=== PATIENT | female | born 1935 | race Caucasian/White ===

== ENCOUNTER 2018-12-22 11:17 | Inpatient (IN) | payer MEDICARE ==
[2018-12-22] MEDS ORDERED: MORPHINE SULFATE 4 MG/ML SYRINGE IVP STA (11:38)
--- NOTE | 2018-12-22 11:43 | ED ---
General Adult HPI - General Chief complaint: Fall Stated complaint: Fell rt hip pain Time Seen by Provider: 12/22/18 11:30 Source: family, RN notes reviewed, old records reviewed Mode of arrival: wheelchair Limitations: altered mental status - History of Present Illness Initial comments: Patient is an 83-year-old female who presents emergency department today for evaluation after falling on her right hip. Patient reports that she stood up from a recliner chair, tripped fell and landed on her right hip. She's had history of left hip fracture 2 years ago. She is currently staying with her son. She is originally from [place], and is with her son while her daughters on vacation. Patient reports that she's not on any blood thinners besides a baby aspirin. Patient reports pain with extension of the right leg and hip. She denies any head or neck injury. She denies any associated chest pain, dizziness or shortness of breath prior to tripping and falling. Patient does have history of dementia. - Related Data Allergies Allergy/AdvReac Type Severity Reaction Status Date / Time Penicillins Allergy Unknown Verified 12/22/18 11:27 Sulfa (Sulfonamide Allergy Unknown Verified 12/22/18 11:27 Antibiotics) warfarin [From Coumadin] Allergy Unknown Verified 12/22/18 11:27 Review of Systems ROS Statement: Those systems with pertinent positive or pertinent negative responses have been documented in the HPI. ROS Other: All systems not noted in ROS Statement are negative. Past Medical History Past Medical History: Atrial Fibrillation, COPD, CVA/TIA, Dementia, GERD/Reflux, Hyperlipidemia, Hypertension, Osteoarthritis (OA) Additional Past Medical History / Comment(s): ulcerative colitis, mitral valve prolapse, fibromyalgia, renal cyst, neuropathy, osteoporosis History of Any Multi-Drug Resistant Organisms: None Reported Additional Past Surgical History / Comment(s): left hip Past Psychological History: No Psychological Hx Reported Smoking Status: Former smoker Past Alcohol Use History: None Reported Past Drug Use History: None Reported General Exam - General Exam Comments Initial Comments: Pleasantly 83-year-old female with dementia. Patient appears in moderate discomfort at this time. Limitations: altered mental status General appearance: alert, in no apparent distress Head exam: Present: atraumatic, normocephalic, normal inspection Eye exam: Present: normal appearance, PERRL, EOMI. Absent: scleral icterus, conjunctival injection, periorbital swelling ENT exam: Present: normal exam, mucous membranes moist Neck exam: Present: normal inspection. Absent: tenderness, meningismus, lymphadenopathy Respiratory exam: Present: normal lung sounds bilaterally. Absent: respiratory distress, wheezes, rales, rhonchi, stridor Cardiovascular Exam: Present: regular rate, normal rhythm, normal heart sounds. Absent: systolic murmur, diastolic murmur, rubs, gallop, clicks GI/Abdominal exam: Present: soft, normal bowel sounds. Absent: distended, tenderness, guarding, rebound, rigid Extremities exam: Present: normal inspection, full ROM, normal capillary refill. Absent: tenderness, pedal edema, joint swelling, calf tenderness Right Hip exam: Present: tenderness (over greater trochanter). Absent: normal inspection (Patient holding leg in flexed position. ), full ROM Upper Leg exam: Present: normal inspection, full ROM Knee exam: Present: normal inspection, full ROM Lower Leg exam: Present: normal inspection, full ROM Neurovascular tendon exam: Present: no vascular compromise Back exam: Present: normal inspection Neurological exam: Present: alert, oriented X3, CN II-XII intact Course Vital Signs 12/22/18 11:22 Temperature 98.1 F Pulse Rate 94 Respiratory 18 Rate Blood Pressure 155/82 O2 Sat by Pulse 97 Oximetry - Reevaluation(s) Reevaluation #1: 12/22/18 12:06 had a localized ALLERGIC reaction from receiving IV morphine on the right arm. Some minor hives and welling noted to the right upper arm. Patient will be receiving Benadryl. Medical Decision Making - Medical Decision Making Patient is an 83-year-old female with a history of underlying dementia. She is here visiting her son for the week. Patient's son is a respiratory therapist hospital. She presents after tripping fall from a recliner. She landed onto her right hip. Patient sustained a right subcapital hip fracture. Patient's st arted on a Patricia catheter in, given pain medication. She did have a slight ALLERGIC reaction with hives on the arm after receiving morphine. Patient case was tyrel Brown who will accept the admission for Dr. Cook. Patient will be remaining nothing by mouth at midnight. - Lab Data Result diagrams: 12/22/18 11:56 12/22/18 11:56 Lab Results 12/22/18 12/22/18 12/22/18 Range/Units 11:56 11:56 11:56 WBC 7.9 (3.8-10.6) k/uL RBC 4.04 (3.80-5.40) m/uL Hgb 11.6 (11.4-16.0) gm/dL Hct 36.1 (34.0-46.0) % MCV 89.3 (80.0-100.0) fL MCH 28.7 (25.0-35.0) pg MCHC 32.1 (31.0-37.0) g/dL RDW 13.6 (11.5-15.5) % Plt Count 464 H (150-450) k/uL Neutrophils % 75 % Lymphocytes % 14 % Monocytes % 7 % Eosinophils % 1 % Basophils % 0 % Neutrophils # 5.9 (1.3-7.7) k/uL Lymphocytes # 1.1 (1.0-4.8) k/uL Monocytes # 0.5 (0-1.0) k/uL Eosinophils # 0.1 (0-0.7) k/uL Basophils # 0.0 (0-0.2) k/uL PT 9.7 (9.0-12.0) sec INR 0.9 (<1.2) APTT 20.9 L (22.0-30.0) sec Sodium 139 (137-145) mmol/L Potassium 4.5 (3.5-5.1) mmol/L Chloride 102 (98-107) mmol/L Carbon Dioxide 29 (22-30) mmol/L Anion Gap 8 mmol/L BUN 26 H (7-17) mg/dL Creatinine 0.82 (0.52-1.04) mg/dL Est GFR (CKD-EPI)AfAm 77 (>60 ml/min/1.73 sqM) Est GFR (CKD-EPI)NonAf 66 (>60 ml/min/1.73 sqM) Glucose 115 H (74-99) mg/dL Calcium 9.8 (8.4-10.2) mg/dL Total Bilirubin 0.3 (0.2-1.3) mg/dL AST 24 (14-36) U/L ALT 22 (9-52) U/L Alkaline Phosphatase 72 (38-126) U/L Total Protein 6.5 (6.3-8.2) g/dL Albumin 3.7 (3.5-5.0) g/dL 12/22/18 12:06 Patient - Radiology Data Radiology results: report reviewed Subtle subcapital not commuted acute impaction fracture with diffuse osseous demineralization. Chest x-ray shows COPD and chronic appearing changes. No definite acute process. Disposition Clinical Impression: Closed right hip fracture, Dementia, HTN (hypertension) Disposition: ADMITTED IP TO THIS [facility] Condition: Stable Is patient prescribed a controlled substance at d/c from ED?: No Referrals: None,Stated [Primary Care Provider] - 1-2 days Time of Disposition: 13:16
[2018-12-22] MEDS ORDERED: diphenhydrAMINE 50 MG/ML 1 ML VIAL IVP STA (12:03)
[2018-12-22 12:16] LABS: Basophils % (A) 0 %; Eosinophils # (A) 0.1 k/uL (0-0.7); Eosinophils % (A) 1 %; HCT 36.1 % (34.0-46.0); HGB 11.6 gm/dL (11.4-16.0); Lymphocytes # (A) 1.1 k/uL (1.0-4.8); Lymphocytes % (A) 14 %; MCH 28.7 pg (25.0-35.0); MCHC 32.1 g/dL (31.0-37.0); MCV 89.3 fL (80.0-100.0); Mean Platelet Volume 6.8; Monocytes # (A) 0.5 k/uL (0-1.0); Monocytes % (A) 7 %; Neutrophils # (A) 5.9 k/uL (1.3-7.7); Neutrophils % (A) 75 %; Platelet Count 464 k/uL (150-450); RBC 4.04 m/uL (3.80-5.40); RDW 13.6 % (11.5-15.5); WBC 7.9 k/uL (3.8-10.6)
[2018-12-22 12:20] LABS: Albumin 3.7 g/dL (3.5-5.0); Calcium 9.8 mg/dL (8.4-10.2); Potassium 4.5 mmol/L (3.5-5.1); Total Bilirubin 0.3 mg/dL (0.2-1.3); Total Protein 6.5 g/dL (6.3-8.2)
[2018-12-22 12:27] LABS: INR 0.9 (<1.2); Prothrombin Time 9.7 sec (9.0-12.0)
[2018-12-22 12:40] LABS: Partial Thromboplastin Time 20.9 sec (22.0-30.0)
--- NOTE | 2018-12-22 12:58 | XR ---
EXAMINATION TYPE: XR chest 1V DATE OF EXAM: 12/22/2018 COMPARISON: NONE HISTORY: 83-year-old female with pain after fall TECHNIQUE: Single frontal view of the chest is obtained. FINDINGS: Heart upper limits of normal in size. Atherosclerotic arch calcifications. Hyperinflation with diffus e interstitial prominence which has a chronic appearance. No consolidation, pneumothorax, or pleural effusion. IMPRESSION: COPD and chronic appearing changes. No definite acute process.
--- NOTE | 2018-12-22 13:01 | XR ---
EXAMINATION TYPE: XR Hip RT and AP Pelvis, XR femur RT DATE OF EXAM: 12/22/2018 COMPARISON: NONE HISTORY: Fall with subsequent right hip pain. The patient is unable to straighten her right hip. TECHNIQUE: A single AP view of the pelvis is obtained. Two views of the right hip are obtained. FINDINGS: Sclerosis is seen in the subcapital right hip with cortical discontinuity laterally. There is also abnormal angulation of the femur on the basis of a subtle subcapital right femoral neck fract ure. Generalized osseous demineralization is seen. Surgical pinning of the left prior femoral neck fr acture seen. Remainder the pelvis appears grossly intact. Sacroiliac joint spaces are symmetric. Mode rate degree fecal stasis is incidentally noted. Remainder the right femur is intact. Knee joint is morales boptimally visualized. IMPRESSION: Subtle subcapital noncomminuted acute impaction fracture with diffuse osseous demineraliz ation.
[2018-12-22] MEDS ORDERED: IBUPROFEN 400 MG TAB PO PRN (13:17)
[2018-12-22] MEDS ORDERED: HYDROmorphone 1 MG/ML 1 ML SYRINGE IVP PRN (13:17)
[2018-12-22] MEDS ORDERED: ONDANSETRON 4 MG/2 ML VIAL IVP PRN (13:17)
[2018-12-22] MEDS ORDERED: NALOXONE 0.4 MG/ML 1 ML VIAL IV PRN (13:17)
[2018-12-22] MEDS ORDERED: ACETAMINOPHEN TAB 325 MG TAB PO PRN (13:17)
[2018-12-22] MEDS: HYDROmorphone 0.5 MG/0.5 ML SYRINGE IVP PRN ×2 (14:29→20:18)
[2018-12-22] MEDS ORDERED: MELATONIN 5 MG TABLET PO PRN (16:49)
[2018-12-22] MEDS ORDERED: CALCIUM CARBONATE 500 MG CHEWABLE PO PRN (16:49)
[2018-12-22] MEDS ORDERED: DOCUSATE 100 MG CAP PO PRN (16:49)
[2018-12-22] MEDS ORDERED: ALBUTEROL NEBULIZED 2.5 MG/3 ML INHALATION PRN (16:49)
--- NOTE | 2018-12-22 16:52 | P.CONS ---
History of Present Illness - Reason for Consult Consult date: 12/22/18 A fib Requesting physician: Delbert Cook - Chief Complaint right hip pain - History of Present Illness Patient is an 83-year-old female with a past medical history of dementia, multiple TIAs, hypertension, dyslipidemia, COPD, A. fib not on chronic anticoagulation secondary to history of bleeding, ulcerative colitis, and multiple other comorbid conditions as listed below who presented to the ER after sustaining a fall at home. In the ER she underwent an extensive evaluation. Her initial vital signs were within normal limits. Initial laboratory analysis showed slightly elevated platelet count 464. Initial x-rays revealed a subtle slept Little noncommunicative acute impaction fracture with diffuse osseous demineralization. In the ER she was given a dose of morphine and had an ALLERGIC reaction consisting of hives around the injection site. She was a dmitted to orthopedics for operative management. Patient seen and examined at bedside with son present. Patient is alert and oriented to self only and son provides all of history. Apparently the patient is here visiting from [place]. She has dementia and her daughter is on vacation who is typically her primary drop clipper. She got up from a recliner today and fell. She landed on her right hip and was then complaining of pain and inability to bear weight. She did not pass out or have any seizure like activity. She has been declining over the last year. She is typically alert to self and her age, but not the year or where she is at. She has had not had any recent illnesses such as cough, cold, fever, flu, diarrhea, constipation, or dysuria. She does have chronic urinary incontinence and wears a brief all the time and uses a pad at night. She typically walks with a walker. She has had poor balance over the last year. She is typically able to walk approximately half a block. She is not complaining of any chest pain or shortness of breath. She has no cardiac history other than atrial fibrillation. She's never had a stent to the heart. She does have a day program that she attends. Her COPD is well controlled she's not had any recent issues and she is maintained on Symbicort and as needed albuterol. Review of Systems Unable to obtain secondary to dementia, as provided by son in HPI. Past Medical History Past Medical History: Atrial Fibrillation, Asthma, COPD, CVA/TIA, Dementia, Eye Disorder, Fibromyalgia, GERD/Reflux, Hyperlipidemia, Hypertension, Osteoarthritis (OA) Additional Past Medical History / Comment(s): Paroxysmal Afib, MVP, TIAs, vascular dementia, peripheral neuropathy, osteoporosis, falls, L hip fracture with surgery, spinal compression fracture 11/2017, carpal tunnel syndrome, generalized body/back pain, corneal dystrophy bilaterally, renal cysts. History of Any Multi-Drug Resistant Organisms: None Reported Past Surgical History: Orthopedic Surgery Additional Past Surgical History / Comment(s): left hip surgery d/t fracture, Past Anesthesia/Blood Transfusion Reactions: No Reported Reaction Smoking Status: Former smoker Additional History: Lives with her daughter. Uses a walker at baseline. Is incontinent and wears a brief and a pad at night. - Past Family History Father Family Medical History: Cancer, Dementia Additional Family Medical History / Comment(s): Father had colon cancer with surgery Mother Family Medical History: CVA/TIA Additional Family Medical History / Comment(s): TIAs. Medications and Allergies Home Medications Medication Instructions Recorded Confirmed Type Albuterol Inhaler [Ventolin Hfa 1 - 2 puff INHALATION RT-Q6H PRN 12/22/18 12/22/18 History Inhaler] Ascorbic Acid [Vitamin C] 500 mg PO DAILY 12/22/18 12/22/18 History Aspirin EC [Ecotrin Low Dose] 81 mg PO HS 12/22/18 12/22/18 History Balsalazide Disodium [Colazal] 750 mg PO HS 12/22/18 12/22/18 History Budesonide/Formoterol Fumarate 2 puff INHALATION RT-BID 12/22/18 12/22/18 History [Symbicort 160-4.5 Mcg Inhaler] Fish Oil(Unknown) 1 cap PO HS 12/22/18 12/22/18 History HYDROcodone/APAP 5-325MG [[place] 1 tab PO DAILY PRN 12/22/18 12/22/18 History 5-325] L.acidoph,Paracasei, B.lactis 1 cap PO DAILY 12/22/18 12/22/18 History [Probiotic] Magnesium 200 mg PO DAILY 12/22/18 12/22/18 History Multivitamins, Thera [Multivitamin 1 tab PO DAILY 12/22/18 12/22/18 History (formulary)] Omeprazole [PriLOSEC] 20 mg PO DAILY 12/22/18 12/22/18 History Omeprazole [PriLOSEC] 20 mg PO DAILY PRN 12/22/18 12/22/18 History Propafenone HCl [Rythmol Sr] 325 mg PO BID 12/22/18 12/22/18 History Tiotropium 18 Mcg/Puff [Spiriva] 1 cap INHALATION RT-DAILY 12/22/18 12/22/18 History Verapamil HCl [Verapamil ER] 180 mg PO DAILY 12/22/18 12/22/18 History Vitamin D3(Unknown) 1 tab PO DAILY 12/22/18 12/22/18 History Vitamin E(Unknown) 1 tab PO DAILY 12/22/18 12/22/18 History tiZANidine [Zanaflex] 2 mg PO Q6HR PRN 12/22/18 12/22/18 History traZODone HCL 50 mg PO HS 12/22/18 12/22/18 History Allergies Allergy/AdvReac Type Severity Reaction Status Date / Time morphine Allergy Unknown Verified 12/22/18 13:33 Penicillins Allergy Unknown Verified 12/22/18 13:33 Sulfa (Sulfonamide Allergy Unknown Verified 12/22/18 13:33 Antibiotics) warfarin [From Coumadin] Allergy Unknown Verified 12/22/18 13:33 Physical Exam Osteopathic Statement: *. No significant issues noted on an osteopathic structural exam other than those noted in the History and Physical/Consult. Vitals: Vital Signs Temp Pulse Pulse Resp BP BP Pulse Ox 12/22/18 14:55 92 17 159/76 12/22/18 14:22 99.3 F 92 18 178/77 92 L 12/22/18 13:38 97.9 F 83 18 111/85 99 12/22/18 11:22 98.1 F 94 18 155/82 97 Intake and Output 12/22/18 12/22/18 12/22/18 06:59 14:59 22:59 Other: Weight 45.359 kg General: non toxic, no distress, appears at stated age, normal weight Derm: no unusual rashes/lesions no unusual ecchymoses, warm, dry Head: atraumatic, normocephalic, symmetric Eyes: EOMI, no lid lag, anicteric sclera, pupils equal round reactive to light ENT: Nose and ears atraumatic, no thrush, no pharyngeal erythema Neck: No thyromegaly, no cervical lymphadenopathy, trachea midline, supple Mouth: no lip lesion, mucus membranes moist Cardiovascular: S1S2 reg, no murmur, positive posterior tibial pulse bilateral, no edema, capillary refill less than 2 seconds Lungs: decreased bs bilateral, no rhonchi, no rales , no accessory muscle use Abdominal: soft, nontender to palpation, no guarding, no appreciable organomegaly, normal bowel sounds Ext: no gross muscle atrophy, muscle strength in upper extremities grossly, no contractures, Patient is laying on left side with right leg bent and refuses to straighten leg. Neuro: CN II-XI grossly intact, light touch intact all 4 extremities, unable to follow instructions for finger to nose. Psych: Alert to self only, flat affect Results CBC & Chem 7: 12/22/18 11:56 12/22/18 11:56 Labs: Abnormal Lab Results - Last 24 Hours (Table) 12/22/18 12/22/18 12/22/18 Range/Units 11:56 11:56 11:56 Plt Count 464 H (150-450) k/uL APTT 20.9 L (22.0-30.0) sec BUN 26 H (7-17) mg/dL Glucose 115 H (74-99) mg/dL Assessment and Plan Assessment: Right hip fracture - Pre-op evaulation: RCRI: 1, will check BNP to see if need to monitor post-op troponins. No additional cardiac testing needed at this point in time. Patient is at elevated risk for surgery due to poor functional status at baseline, currently medically optimized for surgery. 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 However, family would be okay with being full code in the perio-operative period. Thank you for allowing us to participate in the care of this patient. Do not hesitate to contact us with questions. Someone can be reached from the [facility] hospitalist group at all hours of the day at [phone].
[2018-12-22] MEDS: SYMBICORT 160-4.5 MCG INHALER INHALATION SCH (19:36)
[2018-12-22] MEDS: SODIUM CHLORIDE 0.9% 1,000 ML IV SCH ×2 (19:55→20:07)
[2018-12-22] MEDS: traZODone HCL 50 MG TAB PO SCH (20:05)
[2018-12-22] MEDS: ACETAMINOPHEN TAB 500 MG TAB PO SCH (20:05)
[2018-12-22] MEDS: BALSALAZIDE DISODIUM 750 MG CAPSULE PO SCH (20:06)
--- NOTE | 2018-12-22 21:44 | CT ---
EXAMINATION TYPE: CT hip RT wo con with 3-D reconstruction renderings DATE OF EXAM: 12/22/2018 COMPARISON: Radiographs 12/22/2018 at 12:43 PM HISTORY: Right hip pain. CT DLP: 326.5 mGycm Automated exposure control for dose reduction was used. FINDINGS: There is a comminuted, nondisplaced intertrochanteric/basicervical right femoral neck fracture. The femoral head is well-seated within the acetabulum. The femoral head, head-neck junction, and midportion of the femoral neck are intact. The volume of surrounding hemorrhage is relatively small. No other fractures. IMPRESSION: RIGHT FEMORAL NECK FRACTURE.
[2018-12-23] MEDS: PROPAFENONE 225 MG TAB PO SCH ×4 (00:36→22:54)
[2018-12-23] MEDS: ACETAMINOPHEN TAB 500 MG TAB PO SCH ×4 (00:48→22:36)
[2018-12-23] MEDS: VERAPAMIL SR 180 MG TABLET.ER PO SCH (08:25)
[2018-12-23] MEDS: HYDROmorphone 0.5 MG/0.5 ML SYRINGE IVP PRN ×2 (08:25→13:58)
[2018-12-23] MEDS ORDERED: PANTOPRAZOLE 40 MG/10 ML VIAL IV SCH (09:00)
[2018-12-23] MEDS: PANTOPRAZOLE 40 MG TABLET PO SCH (09:08)
[2018-12-23] MEDS: ASCORBIC ACID 500 MG TAB PO SCH (09:08)
[2018-12-23] MEDS: MAGNESIUM OXIDE 400 MG TAB PO SCH (09:09)
[2018-12-23] MEDS: LACTOBACILLUS ACIDOPH & BULGAR 1 EACH PACKET PO SCH (09:09)
[2018-12-23] MEDS: MULTIVITAMINS, THERA 1 EACH TAB PO SCH (09:09)
[2018-12-23 09:14] LABS: HCT 31.7 % (34.0-46.0); Hypochromasia Slight; MCH 28.1 pg (25.0-35.0); MCHC 31.4 g/dL (31.0-37.0); MCV 89.4 fL (80.0-100.0); Platelet Count 352 k/uL (150-450); RBC 3.55 m/uL (3.80-5.40); RDW 13.7 % (11.5-15.5); WBC 7.8 k/uL (3.8-10.6)
[2018-12-23 09:22] LABS: Calcium 8.6 mg/dL (8.4-10.2); Potassium 3.9 mmol/L (3.5-5.1)
--- NOTE | 2018-12-23 09:27 | P.HPOR ---
History of Present Illness H&P Date: 12/23/18 Chief Complaint: Right Hip Fracture Patient is an 83-year-old female seen at bedside this morning. She was admitted through the emergency department yesterday after a fall at home resulting in a right hip fracture. She has pain at the right hip as expected. She is denying radicular symptoms such as numbness or tingling. She apparently had a previous left hip fracture was repaired 2 years ago which included percutaneous pinning. That has been stable. She is currently denying left hip pain. In the ER she underwent an extensive evaluation. Her initial vital signs were within normal limits. Initial laboratory analysis showed slightly elevated platelet count 464. She has a past medical history of dementia, multiple TIAs, hypertension, dyslipidemia, COPD, A. fib not on chronic anticoagulation secondary to history of bleeding, ulcerative colitis, and multiple other comorbid condition. In the ER she was given a dose of morphine and had an ALLERGIC reaction consisting of hives around the injection site. ED History: Patient seen and examined at bedside with son present. Patient is alert and oriented to self only and son provides all of history. Apparently the patient is here visiting from [place]. She has dementia and her daughter is on vacation who is typically her primary comfort station supervisor. She got up from a recliner today and fell. She landed on her right hip and was then complaining of pain and inability to bear weight. She did not pass out or have any seizure like activity. She has been declining over the last year. She is typically alert to self and her age, but not the year or where she is at. She has had not had any recent illnesses such as cough, cold, fever, flu, diarrhea, constipation, or dysuria. She does have chronic urinary incontinence and wears a brief all the time and uses a pad at night. She typically walks with a walker. She has had poor balance over the last year. She is typically able to walk approximately half a block. She is not complaining of any chest pain or shortness of breath. She has no cardiac history other than atrial fibrillation. She's never had a stent to the heart. She does have a day program that she attends. Her COPD is well controlled she's not had any recent issues and she is maintained on Symbicort and as needed albuterol. Review of Systems All systems: negative Past Medical History Past Medical History: Atrial Fibrillation, Asthma, COPD, CVA/TIA, Dementia, Eye Disorder, Fibromyalgia, GERD/Reflux, Hyperlipidemia, Hypertension, Osteoarthritis (OA) Additional Past Medical History / Comment(s): Paroxysmal Afib, MVP, TIAs, vascular dementia, peripheral neuropathy, osteoporosis, falls, L hip fracture with surgery, spinal compression fracture 11/2017, carpal tunnel syndrome, generalized body/back pain, corneal dystrophy bilaterally, renal cysts. History of Any Multi-Drug Resistant Organisms: None Reported Past Surgical History: Orthopedic Surgery Additional Past Surgical History / Comment(s): left hip surgery d/t fracture, Past Anesthesia/Blood Transfusion Reactions: No Reported Reaction Smoking Status: Former smoker - Past Family History Father Family Medical History: Cancer, Dementia Additional Family Medical History / Comment(s): Father had colon cancer with surgery Mother Family Medical History: CVA/TIA Additional Family Medical History / Comment(s): TIAs. Medications and Allergies Home Medications Medication Instructions Recorded Confirmed Type Albuterol Inhaler [Ventolin Hfa 1 - 2 puff INHALATION RT-Q6H PRN 12/22/18 12/22/18 History Inhaler] Ascorbic Acid [Vitamin C] 500 mg PO DAILY 12/22/18 12/22/18 History Aspirin EC [Ecotrin Low Dose] 81 mg PO HS 12/22/18 12/22/18 History Balsalazide Disodium [Colazal] 750 mg PO HS 12/22/18 12/22/18 History Budesonide/Formoterol Fumarate 2 puff INHALATION RT-BID 12/22/18 12/22/18 History [Symbicort 160-4.5 Mcg Inhaler] Fish Oil(Unknown) 1 cap PO HS 12/22/18 12/22/18 History HYDROcodone/APAP 5-325MG [[place] 1 tab PO DAILY PRN 12/22/18 12/22/18 History 5-325] L.acidoph,Paracasei, B.lactis 1 cap PO DAILY 12/22/18 12/22/18 History [Probiotic] Magnesium 200 mg PO DAILY 12/22/18 12/22/18 History Multivitamins, Thera [Multivitamin 1 tab PO DAILY 12/22/18 12/22/18 History (formulary)] Omeprazole [PriLOSEC] 20 mg PO DAILY 12/22/18 12/22/18 History Omeprazole [PriLOSEC] 20 mg PO DAILY PRN 12/22/18 12/22/18 History Propafenone HCl [Rythmol Sr] 325 mg PO BID 12/22/18 12/22/18 History Tiotropium 18 Mcg/Puff [Spiriva] 1 cap INHALATION RT-DAILY 12/22/18 12/22/18 History Verapamil HCl [Verapamil ER] 180 mg PO DAILY 12/22/18 12/22/18 History Vitamin D3(Unknown) 1 tab PO DAILY 12/22/18 12/22/18 History Vitamin E(Unknown) 1 tab PO DAILY 12/22/18 12/22/18 History tiZANidine [Zanaflex] 2 mg PO Q6HR PRN 12/22/18 12/22/18 History traZODone HCL 50 mg PO HS 12/22/18 12/22/18 History Allergies Allergy/AdvReac Type Severity Reaction Status Date / Time morphine Allergy Unknown Verified 12/22/18 13:33 Penicillins Allergy Unknown Verified 12/22/18 13:33 Sulfa (Sulfonamide Allergy Unknown Verified 12/22/18 13:33 Antibiotics) warfarin [From Coumadin] Allergy Unknown Verified 12/22/18 13:33 Physical Examination Inspection of the right lower extremity shows no deformity. She has pain with minimal range of motion as expected. Range of motion of the knee, ankle and foot is benign. Calf is soft and nontender. Neurovascular status is intact throughout the right lower extremity. 2+ dorsalis pedis pulse and less than 2 second capillary refill is present. Results Initial x-rays and emerged from a showed what appeared be a nondisplaced subcapital fracture. CT of the right hip was performed shows what appears to be more be more of a nondisplaced intertrochanteric basicervical femoral neck fracture. - Labs Labs: Abnormal Lab Results - Last 24 Hours (Table) 12/22/18 12/22/18 12/22/18 Range/Units 11:56 11:56 11:56 Plt Count 464 H (150-450) k/uL APTT 20.9 L (22.0-30.0) sec BUN 26 H (7-17) mg/dL Glucose 115 H (74-99) mg/dL H & H 12/22/18 Range/Units 11:56 Hgb 11.6 (11.4-16.0) gm/dL Hct 36.1 (34.0-46.0) % Coagulation 12/22/18 Range/Units 11:56 INR 0.9 (<1.2) Result Diagrams: 12/22/18 11:56 12/22/18 11:56 - Diagnostic results Hip CT: report reviewed, image reviewed Assessment and Plan (1) Closed right hip fracture Narrative/Plan: Patient has been reviewed with Dr. Cook. Plan is to proceed with surgical intervention including right intramedullary hip screw/gamma nail for her right hip fracture. She has been nothing by mouth. She's been cleared by medicine. Procedure has been boarded. Continue pain management and medical management perioperatively. She will need placement postoperatively. Current Visit: Yes Status: Acute Priority: Medium Code(s): S72.001A - FRACTURE OF UNSP PART OF NECK OF RIGHT FEMUR, INIT SNOMED Code(s): 742152457 Time with Patient: Less than 30
[2018-12-23] MEDS: SYMBICORT 160-4.5 MCG INHALER INHALATION SCH ×2 (10:12→20:57)
[2018-12-23 11:54] VITALS: BMI 17.2
[2018-12-23] MEDS: SODIUM CHLORIDE 0.9% 1,000 ML IV SCH (12:52)
--- NOTE | 2018-12-23 14:27 | CDI ---
Documentation Clarification Form Date: 12/23/2018 2:06:34 PM From: Stephanie Rose RN CCDS Admit Date: 12/22/2018 1:34:00 PM Patient Name: Stephanie Serna Visit Number: [id number] Discharge Date: ATTENTION: The Clinical Documentation Specialists (CDI) and [facility] Coding Staff appreciate your assistance in clarifying documentation. Please respond to the clarification below the line at the bottom and electronically sign. The CDI & [facility] Coding staff will review the response and follow-up if needed. Please note: Queries are made part of the Legal Health Record. If you have any questions, please contact the author of this message via ITS. Dr. Alissa Delgado Atrial Fibrillation is documented in your consult. History/Risk Factors: 83 year old female presents to the ED for right hip pain after a fall. Clinical Indicators: Medical history of TIAs, HTN, Dyslipidemia, Ulcerative Colitis . EKG/telemetry: Normal Sinus rhythm low voltage QRS Treatment: Rythmol; not on anticoagulation secondary to history of bleeding. In your professional opinion, can you please clarify the type of Atrial Fibrillation, if known? Chronic/Permanent Paroxysmal Persistent Other, please specify Unable to determine (Last Revision: September 2017) Paroxysmal A fib MTDD
--- NOTE | 2018-12-23 16:24 | P.PN ---
Subjective Progress Note Date: 12/23/18 (delayed charting seen at 1045) Principal diagnosis: hip pain Patient is an 83-year-old female with a past medical history of dementia, multiple TIAs, hypertension, dyslipidemia, COPD, A. fib not on chronic anticoagulation secondary to history of bleeding, ulcerative colitis, and multiple other comorbid conditions as listed below who presented to the ER after sustaining a fall at home. In the ER she underwent an extensive evaluation. Her initial vital signs were within normal limits. Initial laboratory analysis showed slightly elevated platelet count 464. Initial x-rays revealed a subtle left noncommunicative acute impaction fracture with diffuse osseous dem ineralization. In the ER she was given a dose of morphine and had an ALLERGIC reaction consisting of hives around the injection site. She was admitted to orthopedics for operative management. Plan is for OR today. Patient seen and examined at bedside. She is pleasantly confused. She denies any pain currently. She denies any shortness of breath. Son found him hallway. He denies any acute concerns. All questions answered best my ability. Discussed with orthopedic plan is for OR today. [facility] # 1 [place] [facility] Objective - Vital Signs Vital signs: Vital Signs Temp 97.6 F 12/23/18 14:17 Pulse 96 12/23/18 14:17 Resp 16 12/23/18 14:17 BP 167/81 12/23/18 14:17 Pulse Ox 98 12/23/18 14:17 Intake & Output 12/22/18 12/23/18 12/23/18 18:59 06:59 18:59 Weight 45.359 kg 45.359 kg Other: Voiding Method Diaper Diaper Diaper Incontinent Incontinent Incontinent # Voids 1 1 - Exam General: non toxic, no distress, appears at stated age Derm: warm, dry Head: atraumatic, normocephalic, symmetric Eyes: EOMI, no lid lag, anicteric sclera Mouth: no lip lesion, mucus membranes moist Cardiovascular: S1S2 reg, no murmur, positive posterior tibial pulse bilateral, Lungs: decreased bs bilateral, no rhonchi, no rales , no accessory muscle use Abdominal: soft, nontender to palpation, no guarding, no appreciable organomegaly Ext: no gross muscle atrophy, trace edema, no contractures Neuro: CN II-XI grossly intact, no focal neuro deficits Psych: Awake, alert to self, pleasant - Labs CBC & Chem 7: 12/23/18 08:21 07 08:21 Labs: Abnormal Lab Results - Last 24 Hours (Table) 12/23/18 12/23/18 Range/Units 08:21 08:21 RBC 3.55 L (3.80-5.40) m/uL Hgb 10.0 L D (11.4-16.0) gm/dL Hct 31.7 L (34.0-46.0) % BUN 19 H (7-17) mg/dL Assessment and Plan Assessment: Right hip fracture with pain - plan is for OR today - scheduled tylenol to help with post-op pain/delirium as patient is not likely to request pain medications due to advance dementia. - pain control - management per ortho Anemia - suspect due to bleeding and fluids - follow CBC Dementia - provide a safe and supportive environment - continue trazodone at night for sleep P. 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
[2018-12-23] MEDS ORDERED: DIAZEPAM 5 MG TAB PO PRN (17:50)
[2018-12-23] MEDS ORDERED: HYDROcodone/APAP 5-325MG 1 EACH TAB PO PRN ×2 (17:50)
[2018-12-23] MEDS ORDERED: TEMAZEPAM 15 MG CAP PO PRN (17:50)
[2018-12-23] MEDS ORDERED: HYDROmorphone 0.5 MG/0.5 ML SYRINGE IVP PRN ×3 (17:50)
[2018-12-23] MEDS ORDERED: traMADol 50 MG TAB PO PRN (17:50)
[2018-12-23] MEDS ORDERED: MAGNESIUM HYDROXIDE 2,400 MG/10 ML CUP PO PRN (17:50)
[2018-12-23] MEDS ORDERED: MIDAZOLAM 2 MG/2 ML VIAL ONE (19:46)
[2018-12-23] MEDS ORDERED: KETAMINE 10 MG/ML 20 ML VIAL ONE (19:46)
[2018-12-23] MEDS: IV FLUID CONTINUATION 500 ML IV ONE ×3 (19:46→22:36)
[2018-12-23] MEDS ORDERED: SODIUM CHLORIDE 0.9% 100 ML with ceFAZolin 2,000 MG IV ONE ×2 (20:15)
[2018-12-23] MEDS ORDERED: CLINDAMYCIN 600 MG in SODIUM CHLORIDE 0.9% 1,000 ML IRRIGATION ONE (20:28)
[2018-12-23] MEDS ORDERED: MIDAZOLAM (PF) 2 MG/2 ML VIAL IVP ONE (21:40)
--- NOTE | 2018-12-23 21:44 | OP ---
OPERATIVE REPORT DATE OF SURGERY: 12/23/2018 PREOPERATIVE DIAGNOSIS: Right intertrochanteric hip fracture. POSTOPERATIVE DIAGNOSIS: Right intertrochanteric hip fracture. OPERATION: Right intramedullary hip screw fixation for right intertrochanteric fracture. SURGEON: Delbert Cook MD GLUING MACHINE FEEDER: Lexa SANTANA ANESTHESIA: Spinal with sedation. ESTIMATED BLOOD LOSS: 50 mL. TOURNIQUETS: None. DRAINS: None. COMPLICATIONS: None apparent. DISPOSITION: Post-Anesthesia Care Unit. INDICATIONS: Stephanie is a very pleasant 83-year-old female. She does have some early-onset dementia. She fell yesterday onto her right hip. She had extreme right hip pain and was unable to ambulate. She was brought to [facility] Emergency Department via ambulance. Workup including x-rays and CT scan revealed a right minimally displaced intertrochanteric hip fracture. She was admitted and cleared for surgery. Recommendation was for intramedullary hip screw fixation for right IT fracture. I discussed this with her son. They were in agreement and wished to proceed. The risks of the procedure were discussed with them in detail. These risks include but are not limited to risk of infection, nerve damage, bleeding, pain, and a small risk of deep vein thrombosis which could lead to fatal pulmonary embolus. Further risks include lack of healing of the fracture and possibility of hardware failure. All of their questions with regards to the risks were answered to their satisfaction. Appropriate informed consent was obtained. DESCRIPTION OF THE PROCEDURE: Patient was identified in the preoperative holding area. Surgical site was marked by both the patient and myself. She was given 2 grams of Ancef IV for prophylactic purposes. She was then transferred to the operative suite. She was placed supine on the operating room table. General anesthetic was then administered and dosed per the anesthesia department without apparent complication. The patient was then transferred to the fracture table, well padded in preparation for surgery. The patient's right IT fracture was then reduced with traction and rotation. This was confirmed with fluoroscopic imaging. When I was happy with the reduction, we proceeded. The right lower extremity was then prepped and draped in the usual sterile fashion. Standard surgical pause was undertaken to ensure that we were operating on the correct site and that appropriate preoperative antibiotics had been given. All staff in the room were in agreement and we proceeded. An approximate 3 cm incision extending from the tip of the greater trochanter proximally in line with the shaft of the femur was then made with a 10 blade scalpel. The tensor fascia was then incised in line with the incision . The curved awl was then utilized to place the threaded guide pin in the center of the femoral canal. This was placed on the medial aspect of the greater trochanter and then advanced down the medullary canal of the femur. Again this was confirmed with fluoroscopic imaging. I then over-drilled the threaded guide pin. This was done down to the lesser trochanter. This was done to accept the intramedullary nail. The threaded guide pin was then replaced with a ball-tipped guidewire, which was then advanced down the shaft of the femur. Again its placement was confirmed with fluoroscopic imaging. I then reamed the femoral shaft starting with a 9 mm reamer and incrementally increasing up to a 13 mm reamer to allow for acceptance of the intramedullary nail. An 11 x 180 mm x 125-degree Evan Gamma nail was then opened and assembled on the back table by the surgical instrument maker. This was then advanced over the ball-tipped guidewire. The ball-tipped guidewire was then removed. I then made a second small stab incision on the lateral thigh. The threaded guide pin was then placed in the center of the femoral head on both AP and lateral views. The tip-apex distance was appropriate. I then measured for length. It measured for an 85 mm lag screw. The reamer was then set for 85 mm and then the threaded guide pin was over-reamed under fluoroscopic guidance. I then had the telemarketing sales representative open a 10 x 85 mm cannulated, partially threaded lag screw. This was then inserted over the threaded guide pin. She had excellent purchase in the femoral head. The screw was then advanced deep into the center of the femoral head on both AP and lateral views. The tip-apex distance was appropriate. The set screw was then tightened fully and then backed off one quarter turn to allow for compression at the fracture site. I then proceeded to place the distal static interlocking screw. A third small stab incision was made on the lateral thigh. A 5 x 35 mm distal static locking screw was then placed utilizing standard technique. Its placement was confirmed with fluoroscopic imaging. At this point, no further work was deemed necessary. Final fluoroscopic images were taken. The intramedullary tino was placed within the femoral canal. The distal static interlocking bolt was through the nail and was of appropriate length. The hip screw was placed deep in the center of the femoral head on both AP and lateral views. The tip-apex distance was appropriate. At this point in time no further work was deemed necessary. The wounds were thoroughly irrigated with sterile saline solution with antibiotic added. The tensor fascia was then closed with 0 Vicryl interrupted suture. The subcutaneous tissue was closed with 2- 0 Vicryl interrupted suture and the skin was closed with stainless steel latasha. Sterile compressive dressings were then applied. All sponge and needle counts were deemed correct prior to closure. The patient tolerated the procedure without apparent complication. She was transferred to the recovery room in stable condition. MMJIMMY / PORSHAN: [id number] /
--- NOTE | 2018-12-23 21:54 | P.GSCN ---
History of Present Illness Consult date: 12/23/18 Reason for Consult: Urinary retention and inability to insert Patricia catheter History of present illness: The patient is an 83-year-old male admitted yesterday after she fell and fractured her right hip. She underwent ORIF of a hip fracture this evening. Intraoperatively attempts were made to insert a Patricia catheter but this proved unsuccessful. I was asked to see the patient in the recovery room for the purpose of placement of a Patricia catheter. The patient is demented and unable to provide any history. She is also sedated. She apparently had been incontinent of urine and stool at the time of admission. Review of Systems ROS unobtainable: due to mental status Past Medical History Past Medical History: Atrial Fibrillation, Asthma, COPD, CVA/TIA, Dementia, Eye Disorder, Fibromyalgia, GERD/Reflux, Hyperlipidemia, Hypertension, Osteoarthritis (OA) Additional Past Medical History / Comment(s): Paroxysmal Afib, MVP, TIAs, vas cular dementia, peripheral neuropathy, osteoporosis, falls, L hip fracture with surgery, spinal compression fracture 11/2017, carpal tunnel syndrome, generalized body/back pain, corneal dystrophy bilaterally, renal cysts. History of Any Multi-Drug Resistant Organisms: None Reported Past Surgical History: Orthopedic Surgery Additional Past Surgical History / Comment(s): left hip surgery d/t fracture, Past Anesthesia/Blood Transfusion Reactions: No Reported Reaction Smoking Status: Former smoker - Past Family History Father Family Medical History: Cancer, Dementia Additional Family Medical History / Comment(s): Father had colon cancer with surgery Mother Family Medical History: CVA/TIA Additional Family Medical History / Comment(s): TIAs. Medications and Allergies Home Medications Medication Instructions Recorded Confirmed Type Albuterol Inhaler [Ventolin Hfa 1 - 2 puff INHALATION RT-Q6H PRN 12/22/18 12/22/18 History Inhaler] Ascorbic Acid [Vitamin C] 500 mg PO DAILY 12/22/18 12/22/18 History Aspirin EC [Ecotrin Low Dose] 81 mg PO HS 12/22/18 12/22/18 History Balsalazide Disodium [Colazal] 750 mg PO HS 12/22/18 12/22/18 History Budesonide/Formoterol Fumarate 2 puff INHALATION RT-BID 12/22/18 12/22/18 History [Symbicort 160-4.5 Mcg Inhaler] Fish Oil(Unknown) 1 cap PO HS 12/22/18 12/22/18 History HYDROcodone/APAP 5-325MG [[place] 1 tab PO DAILY PRN 12/22/18 12/22/18 History 5-325] L.acidoph,Paracasei, B.lactis 1 cap PO DAILY 12/22/18 12/22/18 History [Probiotic] Magnesium 200 mg PO DAILY 12/22/18 12/22/18 History Multivitamins, Thera [Multivitamin 1 tab PO DAILY 12/22/18 12/22/18 History (formulary)] Omeprazole [PriLOSEC] 20 mg PO DAILY 12/22/18 12/22/18 History Omeprazole [PriLOSEC] 20 mg PO DAILY PRN 12/22/18 12/22/18 History Propafenone HCl [Rythmol Sr] 325 mg PO BID 12/22/18 12/22/18 History Tiotropium 18 Mcg/Puff [Spiriva] 1 cap INHALATION RT-DAILY 12/22/18 12/22/18 History Verapamil HCl [Verapamil ER] 180 mg PO DAILY 12/22/18 12/22/18 History Vitamin D3(Unknown) 1 tab PO DAILY 12/22/18 12/22/18 History Vitamin E(Unknown) 1 tab PO DAILY 12/22/18 12/22/18 History tiZANidine [Zanaflex] 2 mg PO Q6HR PRN 12/22/18 12/22/18 History traZODone HCL 50 mg PO HS 12/22/18 12/22/18 History Allergies Allergy/AdvReac Type Severity Reaction Status Date / Time morphine Allergy Unknown Verified 12/22/18 13:33 Penicillins Allergy Unknown Verified 12/22/18 13:33 Sulfa (Sulfonamide Allergy Unknown Verified 12/22/18 13:33 Antibiotics) warfarin [From Coumadin] Allergy Unknown Verified 12/22/18 13:33 Surgical - Exam Vital Signs Temp Pulse Resp BP Pulse Ox 98.1 F 94 18 155/82 97 12/22/18 11:22 12/22/18 11:22 12/22/18 11:22 12/22/18 11:22 12/22/18 11:22 - General well developed, well nourished - Abdomen Abdomen: soft, non tender - Genitourinary normal external genitalia, other (The urethral meatus was not visible.) Results - Labs 12/23/18 08:21 12/23/18 08:21 Abnormal Lab Results - Last 24 Hours (Table) 12/23/18 12/23/18 Range/Units 08:21 08:21 RBC 3.55 L (3.80-5.40) m/uL Hgb 10.0 L D (11.4-16.0) gm/dL Hct 31.7 L (34.0-46.0) % BUN 19 H (7-17) mg/dL Diabetes panel 12/23/18 Range/Units 08:21 Sodium 139 (137-145) mmol/L Potassium 3.9 (3.5-5.1) mmol/L Chloride 106 (98-107) mmol/L Carbon Dioxide 26 (22-30) mmol/L BUN 19 H (7-17) mg/dL Creatinine 0.83 (0.52-1.04) mg/dL Glucose 93 (74-99) mg/dL Calcium 8.6 (8.4-10.2) mg/dL Calcium panel 12/23/18 Range/Units 08:21 Calcium 8.6 (8.4-10.2) mg/dL Pituitary panel 12/23/18 Range/Units 08:21 Sodium 139 (137-145) mmol/L Potassium 3.9 (3.5-5.1) mmol/L Chloride 106 (98-107) mmol/L Carbon Dioxide 26 (22-30) mmol/L BUN 19 H (7-17) mg/dL Creatinine 0.83 (0.52-1.04) mg/dL Glucose 93 (74-99) mg/dL Calcium 8.6 (8.4-10.2) mg/dL Adrenal panel 12/23/18 Range/Units 08:21 Sodium 139 (137-145) mmol/L Potassium 3.9 (3.5-5.1) mmol/L Chloride 106 (98-107) mmol/L Carbon Dioxide 26 (22-30) mmol/L BUN 19 H (7-17) mg/dL Creatinine 0.83 (0.52-1.04) mg/dL Glucose 93 (74-99) mg/dL Calcium 8.6 (8.4-10.2) mg/dL Assessment and Plan (1) Urinary retention Narrative/Plan: Urinary retention and inability to insert Patricia catheter. Following my examination the vaginal introitus was prepped with Betadine solution. I was able to locate the urethral meatus with the tip of my finger and was then able to guide a 16-Spanish Patricia catheter into the bladder. Relatively clear urine drained. Although the location of the patient's urethral meatus is such that it was not visible this is not necessarily pathologic and was not the cause of her urinary retention. The patient's catheter should remain in place until she is able to ambulate. Once it is removed she should be monitored with the bladder scan unit to ensure that she does not have an excessive postvoid residual. Current Visit: Yes Status: Acute Code(s): R33.9 - RETENTION OF URINE, UNSPECIFIED SNOMED Code(s): 545161347
[2018-12-23] MEDS: LACTATED RINGERS 1,000 ML IV SCH (22:04)
[2018-12-23 22:39] LABS: Appearance,Urine Clear (Clear); Bilirubin,Urine Negative (Negative); Blood,Urine Negative (Negative); Color,Urine Light Yellow; Glucose,Urine (UA) Negative (Negative); Ketones,Urine 1+ (Negative); Leukocyte Esterase,Urine Negative (Negative); Nitrite,Urine Negative (Negative); Protein,Urine Negative (Negative); Specific Gravity,Urine 1.015 (1.001-1.035); Urobilinogen,Urine <2.0 mg/dL (<2.0)
[2018-12-23] MEDS: BALSALAZIDE DISODIUM 750 MG CAPSULE PO SCH (22:54)
[2018-12-23] MEDS: traZODone HCL 50 MG TAB PO SCH (22:54)
[2018-12-23] MEDS: ASPIRIN 325 MG TAB PO SCH (22:54)
[2018-12-23] MEDS: SENNOSIDES-DOCUSATE SODIUM 1 EACH TAB PO SCH (22:55)
[2018-12-24] MEDS: ACETAMINOPHEN TAB 500 MG TAB PO SCH ×4 (00:26→17:43)
[2018-12-24] MEDS: ceFAZolin IN SWFI 2 GM/20 ML SYRINGE IVP SCH ×2 (00:31→07:23)
[2018-12-24] MEDS: SODIUM CHLORIDE 0.9% 1,000 ML IV SCH ×2 (00:32→14:03)
[2018-12-24] MEDS: PANTOPRAZOLE 40 MG TABLET PO SCH (07:23)
--- NOTE | 2018-12-24 07:42 | FL ---
EXAMINATION TYPE: FL guidance operating room, XR Hip Complete RT DATE OF EXAM: 12/23/2018 CLINICAL HISTORY: Right hip pain and fracture TECHNIQUE: Fluoroscopy. COMPARISON: None. FINDINGS: Fluoroscopic guidance was provided during procedure performed by Dr. Cook. A total of 1 minute and 2 seconds of fluoroscopic time was utilized during the procedure and 2 spot images was ac quired during right hip intertrochanteric fixation. IMPRESSION: As Above.
[2018-12-24] MEDS: SYMBICORT 160-4.5 MCG INHALER INHALATION SCH ×2 (07:48→19:18)
[2018-12-24 08:10] LABS: Basophils % (A) 0 %; Eosinophils # (A) 0.1 k/uL (0-0.7); Eosinophils % (A) 1 %; HCT 29.7 % (34.0-46.0); HGB 9.2 gm/dL (11.4-16.0); Hypochromasia Slight; Lymphocytes # (A) 0.7 k/uL (1.0-4.8); Lymphocytes % (A) 8 %; MCH 28.2 pg (25.0-35.0); MCHC 30.8 g/dL (31.0-37.0); MCV 91.4 fL (80.0-100.0); Mean Platelet Volume 6.9; Monocytes # (A) 0.5 k/uL (0-1.0); Monocytes % (A) 6 %; Neutrophils # (A) 7.7 k/uL (1.3-7.7); Neutrophils % (A) 84 %; Platelet Count 314 k/uL (150-450); RBC 3.25 m/uL (3.80-5.40); RDW 13.7 % (11.5-15.5); WBC 9.2 k/uL (3.8-10.6)
[2018-12-24 08:34] LABS: Albumin 2.8 g/dL (3.5-5.0); Calcium 8.3 mg/dL (8.4-10.2); Potassium 4.2 mmol/L (3.5-5.1); Total Bilirubin 0.3 mg/dL (0.2-1.3); Total Protein 5.4 g/dL (6.3-8.2)
[2018-12-24] MEDS: PROPAFENONE 225 MG TAB PO SCH ×3 (08:48→21:39)
[2018-12-24] MEDS: MULTIVITAMINS, THERA 1 EACH TAB PO SCH (08:48)
[2018-12-24] MEDS: ASCORBIC ACID 500 MG TAB PO SCH (08:48)
[2018-12-24] MEDS: MAGNESIUM OXIDE 400 MG TAB PO SCH (08:48)
[2018-12-24] MEDS: ASPIRIN 325 MG TAB PO SCH ×2 (08:48→21:39)
[2018-12-24] MEDS: VERAPAMIL SR 180 MG TABLET.ER PO SCH (08:48)
[2018-12-24] MEDS: LACTOBACILLUS ACIDOPH & BULGAR 1 EACH PACKET PO SCH (08:48)
[2018-12-24] MEDS: HYDROcodone/APAP 5-325MG 1 EACH TAB PO PRN ×3 (10:27→21:40)
--- NOTE | 2018-12-24 11:01 | P.PN ---
Subjective Progress Note Date: 12/24/18 Principal diagnosis: Right hip fracture Patient is seen at bedside this morning. She is postop day #1 from right IM hip screw for her hip fracture.. She has pain at the surgical site as expected but denies any new complaints. She denies numbness, tingling or calf pain. Review of systems is negative for fever, chills, chest pain, shortness of breath or other Objective - Vital Signs Vital signs: Vital Signs Temp 98 F 12/24/18 07:24 Pulse 92 12/24/18 07:24 Resp 14 12/24/18 07:24 BP 136/63 12/24/18 07:24 Pulse Ox 97 12/24/18 07:24 Intake & Output 12/23/18 12/24/18 12/24/18 18:59 06:59 18:59 Intake Total 1451 125 Output Total 850 Balance 601 125 Weight 45.359 kg Intake: IV 1051 Intake, IV Titration 400 Amount Lactated Ringers 1,000 ml 400 @ 50 mls/hr IV .Q20H [facility] Rx#:[id number] Oral 125 Output: Urine 800 Uretheral (Patricia) 200 Estimated Blood Loss 50 Other: Voiding Method Diaper Indwelling Catheter Indwelling Catheter Incontinent # Voids 1 - Exam Inspection reveals a benign surgical wound. There is no active bleeding or raiza inage. Neurovascular status is intact throughout the lower extremity with motor and sensation fully intact. Calf is soft and nontender. 2+ dorsalis pedis pulse and less than 2 second cap refill is present. - Constitutional General appearance: Present: no acute distress - Labs CBC & Chem 7: 12/24/18 07:17 12/24/18 07:17 Labs: Abnormal Lab Results - Last 24 Hours (Table) 12/23/18 12/24/18 12/24/18 Range/Units 21:52 07:17 07:17 RBC 3.25 L (3.80-5.40) m/uL Hgb 9.2 L (11.4-16.0) gm/dL Hct 29.7 L (34.0-46.0) % MCHC 30.8 L (31.0-37.0) g/dL Lymphocytes # 0.7 L (1.0-4.8) k/uL BUN 21 H (7-17) mg/dL Glucose 106 H (74-99) mg/dL Calcium 8.3 L (8.4-10.2) mg/dL Total Protein 5.4 L (6.3-8.2) g/dL Albumin 2.8 L (3.5-5.0) g/dL Urine Ketones 1+ H (Negative) Assessment and Plan (1) Closed right hip fracture Narrative/Plan: She will continue with routine postop orthopedic protocol including pain management, wound care, PT, DVT prophylaxis and medical management. Expect that she will transfer to rehab in next 1-2 days. Current Visit: Yes Status: Acute Priority: Medium Code(s): S72.001A - FRACTURE OF UNSP PART OF NECK OF RIGHT FEMUR, INIT SNOMED Code(s): 937341415 Time with Patient: Less than 30
[2018-12-24] MEDS: IPRATROPIUM 0.5 MG/2.5 ML NEBU INHALATION SCH ×3 (11:20→14:00)
--- NOTE | 2018-12-24 13:18 | P.PN ---
Subjective Progress Note Date: 12/24/18 Feels okay, at baseline mental status, no vomiting no shortness of breath Objective - Vital Signs Vital signs: Vital Signs Temp 98 F 12/24/18 07:24 Pulse 92 12/24/18 07:24 Resp 14 12/24/18 07:24 BP 136/63 12/24/18 07:24 Pulse Ox 97 12/24/18 07:24 Intake & Output 12/23/18 12/24/18 12/24/18 18:59 06:59 18:59 Intake Total 1451 125 Output Total 850 Balance 601 125 Weight 45.359 kg Intake: IV 1051 Intake, IV Titration 400 Amount Lactated Ringers 1,000 ml 400 @ 50 mls/hr IV .Q20H [facility] Rx#:[id number] Oral 125 Output: Urine 800 Uretheral (Patricia) 200 Estimated Blood Loss 50 Other: Voiding Method Diaper Indwelling Catheter Indwelling Catheter Incontinent # Voids 1 - Exam General: non toxic, no distress, appears at stated age Derm: no unusual rashes/lesions Head: atraumatic, normocephalic Eyes: EOMI Neck: No thyromegaly, no cervical lymphadenopathy Cardiovascular: S1S2 reg, no murmur, no edema Lungs: decreased bs bilateral, no rhonchi, no rales Abdominal: soft, nontender to palpation, no guarding Ext: no gross muscle atrophy Neuro: CN II-XI grossly intact, Psych: Alert to self only, flat affect - Labs CBC & Chem 7: 12/24/18 07:17 12/24/18 07:17 Labs: Abnormal Lab Results - Last 24 Hours (Table) 12/23/18 12/24/18 12/24/18 Range/Units 21:52 07:17 07:17 RBC 3.25 L (3.80-5.40) m/uL Hgb 9.2 L (11.4-16.0) gm/dL Hct 29.7 L (34.0-46.0) % MCHC 30.8 L (31.0-37.0) g/dL Lymphocytes # 0.7 L (1.0-4.8) k/uL BUN 21 H (7-17) mg/dL Glucose 106 H (74-99) mg/dL Calcium 8.3 L (8.4-10.2) mg/dL Total Protein 5.4 L (6.3-8.2) g/dL Albumin 2.8 L (3.5-5.0) g/dL Urine Ketones 1+ H (Negative) Assessment and Plan Plan: Right hip fracture - post right IM hip screw for her hip fracture - management per ortho Dementia, unspecified type without behavioral changes - continue trazodone at night for sleep Chronic A fib, essential HTN - Verapamil - Propafenone - not on chronic anticoagulation due to hx of bleeding COPD - without exacerbation - prn albuterol - symbicort - pulm hygeine GERD - PPI HLD - Fish oil Ulcerative - colzal 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
[2018-12-24] MEDS: LACTATED RINGERS 1,000 ML IV SCH (14:01)
[2018-12-24] MEDS: BALSALAZIDE DISODIUM 750 MG CAPSULE PO SCH (21:39)
[2018-12-24] MEDS: traZODone HCL 50 MG TAB PO SCH (21:39)
[2018-12-24] MEDS: SENNOSIDES-DOCUSATE SODIUM 1 EACH TAB PO SCH (21:48)
[2018-12-25] MEDS: ACETAMINOPHEN TAB 500 MG TAB PO SCH ×4 (00:28→17:41)
[2018-12-25] MEDS: SYMBICORT 160-4.5 MCG INHALER INHALATION SCH ×2 (08:01→20:15)
[2018-12-25] MEDS: LACTOBACILLUS ACIDOPH & BULGAR 1 EACH PACKET PO SCH (09:14)
[2018-12-25] MEDS: PANTOPRAZOLE 40 MG TABLET PO SCH (09:15)
[2018-12-25] MEDS: VERAPAMIL SR 180 MG TABLET.ER PO SCH (09:15)
[2018-12-25] MEDS: ASCORBIC ACID 500 MG TAB PO SCH (09:15)
[2018-12-25] MEDS: MAGNESIUM OXIDE 400 MG TAB PO SCH (09:15)
[2018-12-25] MEDS: LACTATED RINGERS 1,000 ML IV SCH (09:15)
[2018-12-25] MEDS: ASPIRIN 325 MG TAB PO SCH ×2 (09:15→22:00)
[2018-12-25] MEDS: MULTIVITAMINS, THERA 1 EACH TAB PO SCH (09:15)
[2018-12-25] MEDS: PROPAFENONE 225 MG TAB PO SCH ×3 (09:15→22:00)
--- NOTE | 2018-12-25 11:21 | P.PN ---
Subjective Feels okay, at baseline mental status, no vomiting no shortness of breath, has some hip pain Objective - Vital Signs Vital signs: Vital Signs Temp 98.4 F 12/25/18 07:48 Pulse 106 H 12/25/18 07:48 Resp 14 12/25/18 07:48 BP 166/88 12/25/18 07:48 Pulse Ox 94 L 12/25/18 07:48 Intake & Output 12/24/18 12/25/18 12/25/18 18:59 06:59 18:59 Intake Total 911 650 Output Total 200 450 Balance 711 200 Weight 45.359 kg Intake: Intake, IV Titration 350 650 Amount Lactated Ringers 1,000 ml 350 650 @ 50 mls/hr IV .Q20H [facility] Rx#:[id number] Oral 561 Output: Urine 200 450 Other: Voiding Method Indwelling Catheter Indwelling Catheter Indwelling Catheter - Exam General: non toxic, no distress, appears at stated age Derm: no unusual rashes/lesions Head: atraumatic, normocephalic Eyes: EOMI Neck: supple Cardiovascular: S1S2 reg, no murmur, no edema Lungs: decreased bs bilateral, no rhonchi, no rales Abdominal: soft, nontender to palpation, no guarding Ext: no gross muscle atrophy Neuro: CN II-XI grossly intact, Psych: Alert to self only, flat affect - Labs CBC & Chem 7: 12/24/18 07:17 12/24/18 07:17 Assessment and Plan Plan: Right hip fracture - post right IM hip screw for her hip fracture - management per ortho Dementia, unspecified type without behavioral changes - continue trazodone for sleep Chronic A fib, essential HTN - Verapamil - Propafenone - not on chronic anticoagulation due to hx of bleeding COPD - without exacerbation - prn albuterol - symbicort - pulm hygeine, stable GERD - PPI HLD - Fish oil Ulcerative - colzal 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
--- NOTE | 2018-12-25 15:57 | P.PN ---
Subjective Principal diagnosis: Right hip fracture Patient is seen at bedside this morning. She is postop day #2 from right IM hip screw for her hip fracture.. She has pain at the surgical site as expected but denies any new complaints. She denies numbness, tingling or calf pain. Review of systems is negative for fever, chills, chest pain, shortness of breath or other Objective - Vital Signs Vital signs: Vital Signs Temp 98.5 F 12/25/18 14:19 Pulse 72 12/25/18 14:19 Resp 15 12/25/18 14:19 BP 159/66 12/25/18 14:19 Pulse Ox 95 12/25/18 14:19 Intake & Output 12/24/18 12/25/18 12/25/18 18:59 06:59 18:59 Intake Total 911 650 500 Output Total 200 450 Balance 711 200 500 Weight 45.359 kg Intake: Intake, IV Titration 350 650 Amount Lactated Ringers 1,000 ml 350 650 @ 50 mls/hr IV .Q20H [facility] Rx#:[id number] Oral 561 500 Output: Urine 200 450 Other: Voiding Method Indwelling Catheter Indwelling Catheter Indwelling Catheter - Exam Inspection reveals a benign surgical wound. There is no active bleeding or drainage. Neurovascular status is intact throughout the lower extremity with motor and sensation fully intact. Calf is soft and nontender. 2+ dorsalis pedis pulse and less than 2 second cap refill is present. - Constitutional General appearance: Present: no acute distress - Labs CBC & Chem 7: 12/24/18 07:17 12/24/18 07:17 Assessment and Plan (1) Closed right hip fracture Narrative/Plan: She will continue with routine postop orthopedic protocol including pain management, wound care, PT, DVT prophylaxis and medical management. Expect that she will transfer to rehab in next 1-2 days. Current Visit: Yes Status: Acute Priority: Medium Code(s): S72.001A - FRACTURE OF UNSP PART OF NECK OF RIGHT FEMUR, INIT SNOMED Code(s): 617239307 Time with Patient: Less than 30
[2018-12-25] MEDS: HYDROcodone/APAP 5-325MG 1 EACH TAB PO PRN (21:59)
[2018-12-25] MEDS: BALSALAZIDE DISODIUM 750 MG CAPSULE PO SCH (22:00)
[2018-12-25] MEDS: traZODone HCL 50 MG TAB PO SCH (22:00)
[2018-12-25] MEDS: SENNOSIDES-DOCUSATE SODIUM 1 EACH TAB PO SCH (22:00)
[2018-12-26] MEDS: ACETAMINOPHEN TAB 500 MG TAB PO SCH ×2 (00:29→06:01)
[2018-12-26] MEDS: LACTATED RINGERS 1,000 ML IV SCH (05:44)
[2018-12-26 07:22] LABS: Basophils % (A) 0 %; Eosinophils # (A) 0.3 k/uL (0-0.7); Eosinophils % (A) 3 %; HCT 29.5 % (34.0-46.0); HGB 9.2 gm/dL (11.4-16.0); Lymphocytes % (A) 11 %; MCH 28.3 pg (25.0-35.0); MCHC 31.4 g/dL (31.0-37.0); MCV 90.3 fL (80.0-100.0); Mean Platelet Volume 6.7; Monocytes # (A) 0.5 k/uL (0-1.0); Monocytes % (A) 5 %; Neutrophils # (A) 7.3 k/uL (1.3-7.7); Neutrophils % (A) 79 %; Platelet Count 291 k/uL (150-450); RBC 3.26 m/uL (3.80-5.40); RDW 14.1 % (11.5-15.5); WBC 9.2 k/uL (3.8-10.6)
[2018-12-26 08:02] VITALS: BP 167/78; PULSE 105; RESP 18; TEMP 98.4
[2018-12-26] MEDS: SYMBICORT 160-4.5 MCG INHALER INHALATION SCH (08:07)
[2018-12-26] MEDS: ASPIRIN 325 MG TAB PO SCH ×2 (08:53→09:07)
[2018-12-26] MEDS: MAGNESIUM OXIDE 400 MG TAB PO SCH (08:53)
[2018-12-26] MEDS: VERAPAMIL SR 180 MG TABLET.ER PO SCH (08:53)
[2018-12-26] MEDS: MULTIVITAMINS, THERA 1 EACH TAB PO SCH (08:53)
[2018-12-26] MEDS: LACTOBACILLUS ACIDOPH & BULGAR 1 EACH PACKET PO SCH (08:53)
[2018-12-26] MEDS: PROPAFENONE 225 MG TAB PO SCH ×2 (08:53→09:06)
[2018-12-26] MEDS: ASCORBIC ACID 500 MG TAB PO SCH (08:54)
[2018-12-26] MEDS: PANTOPRAZOLE 40 MG TABLET PO SCH (09:07)
--- NOTE | 2018-12-26 10:00 | P.DS ---
Providers Date of admission: 12/22/18 13:34 Expected date of discharge: 12/26/18 Attending physician: Delbert Cook Consults: 12/22/18 13:17 Consult Physician Stat Consulting Provider: Royal Schwartz Consult Reason/Comments: Patricia Do you want consulting provider notified?: Yes 12/24/18 03:21 Consult Physician Routine Consulting Provider: Alissa Delgado Consult Reason/Comments: medical management Do you want consulting provider notified?: Yes, Notify in am Primary care physician: Stated None - Discharge Diagnosis(es) (1) Intertrochanteric fracture of right hip Current Visit: Yes Status: Acute (2) Status post fall Current Visit: Yes Status: Acute (3) History of COPD Current Visit: Yes Status: Acute (4) History of atrial fibrillation Current Visit: Yes Status: Acute (5) Dementia Current Visit: Yes Status: Acute (6) HTN (hypertension) Current Visit: Yes Status: Acute Hospital Course: This is a pleasant 83-year-old female who presented with right nondisplaced intertrochanteric basicervical femoral neck fracture status post fall. She was admitted for further treatment and intervention and underwent intramedullary nail fixation for her right intertrochanteric hip fracture. The patient tolerated the procedure well and did well postoperatively. She has remained toe-touch weightbearing on the right lower extremity. She is not currently complaining of any right lower extremity pain. Dressing at the right hip has remained clean, dry, and intact. Patient will be discharged to rehabilitation facility once cleared by medicine. Condition on day of discharge stable from an orthopedic standpoint. Patient will be discharged to a rehabilitation facility. Patient family has been working with social work for rehab placement. Patient was cleared preoperatively for surgery by Dr. Delgado. Patient currently denies any nausea, vomiting, fever, or chills. Patient is eating and voiding freely without difficulty. Patricia catheter remains intact. Patient may shower without a dressing over the right hip if surgical sites remain clean and dry over the next 72 hours. River remain intact and we'll plan to be removed postoperative day #12. She is encouraged to take medications as prescribed. Prescriptions have been written by Lexa Brown PA-C. MAPS has been reviewed. Opioid form has been signed by the patient and Lexa Brown PA-C. Prescriptions have been written for aspirin 325 mg, Colace 100 mg, and Gresham 10 mg/325 mg. Patient should take these medications as prescribed. Patient does have medical history which includes dementia, hypertension, COPD, and atrial fibrillation. Patient is pleasant at the bedside today but is confused. Patient will be cleared for discharge to rehabilitation from an orthopedic standpoint pending clearance by medicine. We will plan to have medicine complete her med rec prior to discharge. Physical Exam Intramedullary [place] for Intertrochanteric Fracture: Status post surgical day number 3 Patient is examined lying in bed Patient is awake and alert, but is confused; patient is known to have dementia Vital signs stable Good chest excursion with deep inspiration and expiration Abdomen soft nontender No signs or symptoms of DVT; no calf pain Lower extremity cuffs in place bilaterally Dressing of the right hip is clean, dry, and intact; no erythema, purulence, or signs of infection No pain with palpation over the surgical sites Full range of motion of ankles bilaterally Dorsiflexion, plantarflexion, and extensor hallucis longus positive sustained bilaterally Neurovascularly intact bilateral lower extremities Capillary refill less than 2 seconds bilateral lower extremities Procedures: Right intramedullary nail fixation for right intertrochanteric hip fracture Patient Condition at Discharge: Stable Plan - Discharge Summary Discharge Rx Participant: No New Discharge Prescriptions: New Aspirin 325 mg PO BID #60 tab Docusate [Colace] 100 mg PO BID #60 capsule HYDROcodone/APAP 5-325MG [[place] 5-325] 1 tab PO Q4HR PRN #42 tab PRN Reason: Pain No Action Omeprazole [PriLOSEC] 20 mg PO DAILY PRN PRN Reason: Heartburn traZODone HCL 50 mg PO HS tiZANidine [Zanaflex] 2 mg PO Q6HR PRN PRN Reason: Muscle Spasm HYDROcodone/APAP 5-325MG [[place] 5-325] 1 tab PO DAILY PRN PRN Reason: Pain Albuterol Inhaler [Ventolin Hfa Inhaler] 1 - 2 puff INHALATION RT-Q6H PRN PRN Reason: Shortness Of Breath Magnesium 200 mg PO DAILY L.acidoph,Paracasei, B.lactis [Probiotic] 1 cap PO DAILY Balsalazide Disodium [Colazal] 750 mg PO HS Aspirin EC [Ecotrin Low Dose] 81 mg PO HS Vitamin E(Unknown) 1 tab PO DAILY Fish Oil(Unknown) 1 cap PO HS Vitamin D3(Unknown) 1 tab PO DAILY Multivitamins, Thera [Multivitamin (formulary)] 1 tab PO DAILY Ascorbic Acid [Vitamin C] 500 mg PO DAILY Verapamil HCl [Verapamil ER] 180 mg PO DAILY Tiotropium 18 Mcg/Puff [Spiriva] 1 cap INHALATION RT-DAILY Propafenone HCl [Rythmol Sr] 325 mg PO BID Omeprazole [PriLOSEC] 20 mg PO DAILY Budesonide/Formoterol Fumarate [Symbicort 160-4.5 Mcg Inhaler] 2 puff INHALATION RT-BID Discharge Medication List Albuterol Inhaler [Ventolin Hfa Inhaler] 1 - 2 puff INHALATION RT-Q6H PRN 12/22/18 [History] Ascorbic Acid [Vitamin C] 500 mg PO DAILY 12/22/18 [History] Aspirin EC [Ecotrin Low Dose] 81 mg PO HS 12/22/18 [History] Balsalazide Disodium [Colazal] 750 mg PO HS 12/22/18 [History] Budesonide/Formoterol Fumarate [Symbicort 160-4.5 Mcg Inhaler] 2 puff INHALATION RT-BID 12/22/18 [History] Fish Oil(Unknown) 1 cap PO HS 12/22/18 [History] HYDROcodone/APAP 5-325MG [[place] 5-325] 1 tab PO DAILY PRN 12/22/18 [History] L.acidoph,Paracasei, B.lactis [Probiotic] 1 cap PO DAILY 12/22/18 [History] Magnesium 200 mg PO DAILY 12/22/18 [History] Multivitamins, Thera [Multivitamin (formulary)] 1 tab PO DAILY 12/22/18 [History] Omeprazole [PriLOSEC] 20 mg PO DAILY 12/22/18 [History] Omeprazole [PriLOSEC] 20 mg PO DAILY PRN 12/22/18 [History] Propafenone HCl [Rythmol Sr] 325 mg PO BID 12/22/18 [History] Tiotropium 18 Mcg/Puff [Spiriva] 1 cap INHALATION RT-DAILY 12/22/18 [History] Verapamil HCl [Verapamil ER] 180 mg PO DAILY 12/22/18 [History] Vitamin D3(Unknown) 1 tab PO DAILY 12/22/18 [History] Vitamin E(Unknown) 1 tab PO DAILY 12/22/18 [History] tiZANidine [Zanaflex] 2 mg PO Q6HR PRN 12/22/18 [History] traZODone HCL 50 mg PO HS 12/22/18 [History] Aspirin 325 mg PO BID #60 tab 12/25/18 [Rx] Docusate [Colace] 100 mg PO BID #60 capsule 12/25/18 [Rx] HYDROcodone/APAP 5-325MG [[place] 5-325] 1 tab PO Q4HR PRN #42 tab 12/25/18 [Rx] Follow up Appointment(s)/Referral(s): None,Stated [Primary Care Provider] - 1-2 days Delbert Cook MD [STAFF PHYSICIAN] - 10 Days Activity/Diet/Wound Care/Special Instructions: Keep wound clean and dry Take meds as directed Follow-up with Dr. Cook in office touch down weight bearing [place] out at PO day 12 May shower in 3 days if no bleeding Discharge Disposition: TRANSFER TO SNF/ECF
--- NOTE | 2018-12-26 11:41 | P.PN ---
Subjective Progress Note Date: 12/26/18 Feels okay, at baseline mental status, no vomiting no shortness of breath, comfortable Objective - Vital Signs Vital signs: Vital Signs Temp 98.4 F 12/26/18 07:21 Pulse 105 H 12/26/18 08:00 Resp 18 12/26/18 08:00 BP 167/78 12/26/18 07:21 Pulse Ox 92 L 12/26/18 07:21 Intake & Output 12/25/18 12/26/18 12/26/18 18:59 06:59 18:59 Intake Total 500 Output Total 950 Balance 500 -950 Weight 45.359 kg Intake: Oral 500 Output: Urine 950 Uretheral (Patricia) 800 Other: Voiding Method Indwelling Catheter Indwelling Catheter Indwelling Catheter # Bowel Movements 1 - Exam General: non toxic, no distress, appears at stated age Derm: no unusual rashes/lesions Head: atraumatic Eyes: EOMI Neck: supple Cardiovascular: S1S2 reg, no murmur, no edema Lungs: decreased bs bilateral, no rhonchi, no rales Abdominal: soft, nontender to palpation Ext: no gross muscle atrophy Neuro: CN II-XI grossly intact, Psych: Alert to self only, flat affect - Labs CBC & Chem 7: 12/26/18 06:47 12/24/18 07:17 Labs: Abnormal Lab Results - Last 24 Hours (Table) 12/26/18 Range/Units 06:47 RBC 3.26 L (3.80-5.40) m/uL Hgb 9.2 L (11.4-16.0) gm/dL Hct 29.5 L (34.0-46.0) % Assessment and Plan Plan: Right hip fracture - post right IM hip screw for her hip fracture - management per ortho Dementia, unspecified type without behavioral changes Chronic A fib, essential HTN - Verapamil - Propafenone - not on chronic anticoagulation due to hx of bleeding COPD without exacerbation - prn albuterol - symbicort - pulm hygeine, stable GERD - PPI HLD - Fish oil 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
== END 2018-12-26 12:24 | DRG 481 ==
LOC: EC 11:17 → 4SSUR 13:34
PROVIDERS: ADMIT Orthopaedic Surgery Sports Medicine; ATTEND Orthopaedic Surgery Sports Medicine
PROC: 0QS636Z Reposition Right Upper Femur with Intramedullary Internal Fixation Device, Percutaneous Approach (ICD-10-PCS; principal; 2018-12-23 07:30)
DX: S72.141A Displaced intertrochanteric fracture of right femur, initial encounter for closed fracture (principal); R64 Cachexia; Z68.1 Body mass index [BMI] 19.9 or less, adult; W01.0XXA Fall on same level from slipping, tripping and stumbling without subsequent striking against object, initial encounter; Y92.009 Unspecified place in unspecified non-institutional (private) residence as the place of occurrence of the external cause; D64.9 Anemia, unspecified; E78.5 Hyperlipidemia, unspecified; F01.50 Vascular dementia, unspecified severity, without behavioral disturbance, psychotic disturbance, mood disturbance, and anxiety; I10 Essential (primary) hypertension; I34.1 Nonrheumatic mitral (valve) prolapse; I48.0 Paroxysmal atrial fibrillation; J44.9 Chronic obstructive pulmonary disease, unspecified; K21.9 Gastro-esophageal reflux disease without esophagitis; M79.7 Fibromyalgia; M81.0 Age-related osteoporosis without current pathological fracture; R32 Unspecified urinary incontinence; Z79.51 Long term (current) use of inhaled steroids; Z80.0 Family history of malignant neoplasm of digestive organs; Z86.73 Personal history of transient ischemic attack (TIA), and cerebral infarction without residual deficits; Z87.81 Personal history of (healed) traumatic fracture; Z87.891 Personal history of nicotine dependence; Z88.0 Allergy status to penicillin; Z88.2 Allergy status to sulfonamides; Z88.8 Allergy status to other drugs, medicaments and biological substances
CPT/HCPCS: 36415; 71045; 73502; 80048; 80053; 81003; 83880; 85025; 85027; 85610; 85730; 93005; 94640; 96374; 96375; 99285